=== PATIENT | male | born 1965 | race Hispanic/Latino ===

== ENCOUNTER 2017-07-20 19:54 | Emergency (ER) | payer BC, OTHER ==
[2017-07-20] MEDS ORDERED: Ibuprofen 800 MG TAB ONE (20:32)
[2017-07-20] MEDS ORDERED: Bicillin LA 1.2 MILLION UNITS/2 ML SYRINGE ONE (20:32)
[2017-07-20] MEDS ORDERED: Dexamethasone 10 MG/ML VIAL ONE (20:32)
== END 2017-07-20 21:06 | disposition home or self-care (01) ==
LOC: SCSER 19:54
DX: J02.9 Acute pharyngitis, unspecified (principal); E78.5 Hyperlipidemia, unspecified
CPT/HCPCS: 96372; J0561; J1100